=== PATIENT | female | born 2000 | race Caucasian/White ===

== ENCOUNTER → 2023-12-17 07:55 | Outpatient (BNVA) | payer SELFPAY | PROVIDERS: Family Provider Family Medicine; PCP Family Medicine; Visit Provider Nurse Practitioner Women's Health | DX: Z34.90 Encounter for supervision of normal pregnancy, unspecified, unspecified trimester | CPT/HCPCS: 80307; 81025; 85025; 86592; 86762; 86803; 86850; 86900; 87086; 87340; 87491; 87591; 87806 ==

== ENCOUNTER → 2023-12-31 11:48 | Outpatient (BNVA) | payer MEDICAID, SELFPAY | PROVIDERS: Family Provider Family Medicine; PCP Family Medicine; Visit Provider Obstetrics & Gynecology | DX: Z34.90 Encounter for supervision of normal pregnancy, unspecified, unspecified trimester (principal) | CPT/HCPCS: 81000; 87624 ==

== ENCOUNTER → 2024-01-07 13:22 | Outpatient (BNVA) | payer MEDICAID, SELFPAY | PROVIDERS: Family Provider Family Medicine; PCP Family Medicine; Visit Provider Nurse Practitioner Women's Health | DX: Z34.90 Encounter for supervision of normal pregnancy, unspecified, unspecified trimester (principal) | CPT/HCPCS: 76815 ==

== ENCOUNTER → 2024-01-28 10:58 | Outpatient (BNVA) | payer MEDICAID, SELFPAY | PROVIDERS: Family Provider Family Medicine; PCP Family Medicine; Visit Provider Obstetrics & Gynecology | DX: Z34.90 Encounter for supervision of normal pregnancy, unspecified, unspecified trimester (principal) | CPT/HCPCS: 81000 ==

== ENCOUNTER → 2024-02-25 08:59 | Outpatient (BNVA) | payer MEDICAID, SELFPAY | PROVIDERS: Family Provider Family Medicine; PCP Family Medicine; Visit Provider Obstetrics & Gynecology | DX: Z34.92 Encounter for supervision of normal pregnancy, unspecified, second trimester (principal); Z3A.15 15 weeks gestation of pregnancy | CPT/HCPCS: 81000 ==

== ENCOUNTER → 2024-03-06 14:19 | Outpatient (BNVA) | payer MEDICAID, SELFPAY | PROVIDERS: Family Provider Family Medicine; PCP Family Medicine; Visit Provider Obstetrics & Gynecology | DX: Z36.2 Encounter for other antenatal screening follow-up (principal); Z3A.23 23 weeks gestation of pregnancy | CPT/HCPCS: 76805 ==

== ENCOUNTER → 2024-03-20 08:06 | Outpatient (BNVA) | payer MEDICAID, SELFPAY | PROVIDERS: Family Provider Family Medicine; PCP Family Medicine; Visit Provider Nurse Practitioner Women's Health | DX: Z34.90 Encounter for supervision of normal pregnancy, unspecified, unspecified trimester (principal) | CPT/HCPCS: 81000 ==

== ENCOUNTER → 2024-04-14 10:20 | Outpatient (BNVA) | payer OTHER, MEDICAID, SELFPAY | PROVIDERS: Family Provider Family Medicine; PCP Family Medicine; Visit Provider Obstetrics & Gynecology | DX: Z34.90 Encounter for supervision of normal pregnancy, unspecified, unspecified trimester (principal) | CPT/HCPCS: 81000; 82950 ==

== ENCOUNTER → 2024-05-01 10:39 | Outpatient (BNVA) | payer OTHER, MEDICAID, SELFPAY | PROVIDERS: Family Provider Family Medicine; PCP Family Medicine; Visit Provider Obstetrics & Gynecology | DX: Z36.4 Encounter for antenatal screening for fetal growth retardation (principal); Z3A.31 31 weeks gestation of pregnancy | CPT/HCPCS: 76816 ==

== ENCOUNTER → 2024-06-09 11:16 | Outpatient (BNVA) | payer OTHER, MEDICAID, SELFPAY | PROVIDERS: Family Provider Family Medicine; PCP Family Medicine; Visit Provider Obstetrics & Gynecology | DX: O28.5 Abnormal chromosomal and genetic finding on antenatal screening of mother (principal); Z3A.15 15 weeks gestation of pregnancy | CPT/HCPCS: 84315; 87081 ==

== ENCOUNTER → 2024-07-07 10:24 | Outpatient (BNVA) | payer OTHER, MEDICAID, SELFPAY | PROVIDERS: Family Provider Family Medicine; PCP Family Medicine; Visit Provider Obstetrics & Gynecology | DX: Z34.93 Encounter for supervision of normal pregnancy, unspecified, third trimester (principal); Z3A.38 38 weeks gestation of pregnancy | CPT/HCPCS: 76816; 76819; 84315 ==

== ENCOUNTER 2024-07-11 13:14 | Inpatient (IN) | payer OTHER, MEDICAID, SELFPAY ==
[2024-07-11] VITALS (20 sets, daily range): BP systolic 110–173; BP diastolic 68–86; PULSE 70–96; RESP 16; TEMP 35.9–36.6; BMI 38.2
[2024-07-11 12:31] LABS: Basophils % 0.2 %; Eosinophils # 0.1 10^3/uL (0.0-0.8); Eosinophils % 0.4 %; Hematocrit 34.4 % (36-47); Lymphocytes # 2.2 10^3/uL (0.8-4.8); Lymphocytes % 17.7 %; Mean Corpuscular Hemoglobin 25.6 pg (27-33); Monocytes # 0.4 10^3/uL (0.2-0.9); Monocytes % 3.2 %; Neutrophils # 9.69 10^3/uL (1.8-7.7); Neutrophils % 78.1 %; Nucleated Red Blood Cells % 0 %; Platelet Count 267 10^3/cmm (157-399); Red Cell Distribution Width 14.3 % (12.1-15.1)
[2024-07-11] MEDS: miSOPROStol 100 mcg tablet 25 MCG VAGINAL (12:45)
[2024-07-12] VITALS (57 sets, daily range): BP systolic 110–143; BP diastolic 57–94; PULSE 75–113; RESP 16; TEMP 36.4–37; BMI 38.2
[2024-07-12] MEDS: dextrose 5%-sod chloride 0.45% 1,000 ML 125 ML IV ×2 (09:54→18:36)
[2024-07-12] MEDS: oxytocin 30 UNIT/500 ML BAG IV (09:54)
--- NOTE | 2024-07-12 12:05 | P.HP_ITS ---
Providers/Chief Complaint 2 Admitting Physician: Wilber Grace MD Primary TOWER EQUIPMENT INSTALLER: Wilber Grace MD Primary Care Provider: Scar Dowling Chief Complaint: ctx HPI TOWER EQUIPMENT INSTALLER History of Present Illness Patient was admitted on July 11, 2024, at 1245 23 y.o. G1 EDC July 03, 2024 by 14 week sono done on January 07, 2024 At 41 w 1 d No complications Admitted for induction of labor No c/o + movements Present Details : 1 Para: 0 Labs Rubella: Immune RPR: Negative GBS: Negative Medications/Allergies Home Medications Medication Instructions Recorded Confirmed Last Taken Type PNV 153-FA 400 mcg-om3 35 mg-dha 1 tab PO DAILY 12/17/23 07/11/24 Unknown History 25 mg-epa 5 mg-fish oil chew tablet ( Gummies) acetaminophen 325 mg capsule 325 mg PO QID PRN Pain 02/18/24 07/11/24 Unknown History Allergies Allergy/AdvReac Type Severity Reaction Status Date / Time No Known Allergies Allergy Verified 06/30/24 09:08 PFSH TOWER EQUIPMENT INSTALLER 2 PFSH: Family History Denies family history of Colon cancer Ovarian cancer Prostate cancer Diabetes Heart disease Hyperlipidemia Breast cancer Hypertension Uterine cancer Thyroid disease Stroke Social History Smoking and tobacco/nicotine status: never used tobacco/nicotine History History History 2 1 Term 0 Miscarriages/Ectopic Living Children Care COURTNEY Calculator 2 Estimated Delivery Date Method Current WG Current Estimate 07/03/24 Ultrasound #1 41w 4d Other Estimates 06/07/24 LMP (Uncertain) 45w 2d Specific Issues/Plans ABNORMAL CARRIER SCREENING -- CARRIER FOR SMA, planning for father of baby to be redrawn on 04/04 (spoke with [employer] and they will cover cost of redraw) Vitals/I&O/Wt Last Vital Signs Temp 97.8 F 07/13/24 21:19 Pulse 89 07/13/24 21:19 Resp 16 07/13/24 21:19 BP 114/78 07/13/24 21:19 Pulse Ox 97 07/13/24 21:19 O2 Del Method Room Air 07/13/24 21:19 Weight last 48 hrs Weight 223 lb Physical Exam 2 Narrative: Weight 223 lbs, 5?5? VS normal General comfortable, awake, alert Lungs: clear Cor: RRR Abd: nontender FH 38 cm, cephalic Cervix: 1 cm / 75 / -3 / posterior Ext: normal External monitor: heart tracing good variability, + accelerations Urinary Catheter Management: Reid Latex: Cath Placed During This Visit: yes, but has since been removed by the nurse Reason for Continuing Indwelling Catheter: Decision to DC Catheter Urinary Catheter Date of Insertion: 07/12/24 Urinary Catheter Time of Insertion: 15:50 Date Urinary Catheter Removed: 07/12/24 Time Urinary Catheter Discontinued: 19:40 Data 07/13/24 08:55 Results Labs OB ([facility]): 2 Obstetrics US 07/07/24 Blood Type A Positive 07/11/24 Antibody Screen Negative 07/11/24 Hct 31.4 % (36-47) L 07/13/24 Hgb 10.10 g/dL (11.27-16.99) L 07/13/24 Rho(D) Type Rh positive 07/11/24 Plt Count 223 10^3/cmm (157-399) 07/13/24 Hep Bs Antigen Non-reactive (Nonreactive) 12/17/23 Hepatitis C Antibody Non-reactive (Nonreactive) 12/17/23 Rubella IgG Antibody 199.8 IU/mL (0.0-10.0) H 12/17/23 RPR Nonreactive (Nonreactive) 12/17/23 HIV 1&2 Ab & HIV 1 Ag Non-reactive (Non-Reactiv) 12/17/23 C.trachomatis RNA (TMA) Not detected (NOT DETECTED) N.gonorrhoeae RNA (TMA) Not detected (NOT DETECTED) T. vaginalis Amp RNA Not detected (NOT DETECTED) 12/17/23 Chlamydia/GC Comment See note 12/17/23 Cystic Fibrosis Screen Risk- spinal atrophy 12/17/23 Glucose 1 Hr 50 gm 134 mg/dL (85-140) 04/14/24 HCG, Qual Positive (Negative) H 12/17/23 Urine Opiates Screen Negative ng/mL (Negative) 12/17/23 Ur Barbiturates Screen Negative ng/mL (Negative) 12/17/23 Ur Phencyclidine Scrn Negative ng/mL (Negative) 12/17/23 Ur Amphetamines Screen Negative ng/mL (Negative) 12/17/23 U Benzodiazepines Scrn Negative ng/mL (Negative) 12/17/23 Urine Cocaine Screen Negative ng/mL (Negative) 12/17/23 U Marijuana (THC) Screen Negative ng/mL (Negative) 12/17/23 Micro Urine Specimen 12/17/23 Pap Smear Interpret See note A 12/31/23 A&P Assessment and plan (1) Encounter for induction of labor: 41 w 1 d Fetus reassuring GBS negative Admit for labor induction Plan Cytotec 25 ug intravaginal x one Attestations 2 Medical Necessity Statement*: patient at 41 w 1 d, admitted for induction of labor Coding Level of Care Code Acute Code for Chg Fwd Diagnoses Encounter for induction of labor Z34.90 Time Spent (min) 60
[2024-07-12] MEDS: sodium chloride 0.9% 1,000 ML 999 ML IV (14:01)
[2024-07-12] MEDS: ROPivacaine syringe 100 MG/50 ML SYRINGE 10 MG EPIDURAL ×2 (15:13→18:49)
--- NOTE | 2024-07-12 15:16 | P.ANESASSM_ITS ---
Pre-Anesthetic Assessment Height/Weight: Height 1.63 m Weight 101.151 kg Temp Pulse Resp BP O2 Del Method 97.5 F L 77 16 124/71 Room Air 07/12/24 13:21 07/12/24 15:12 07/11/24 12:22 07/12/24 15:12 07/11/24 13:57 Preop Diagnosis: IUP Labor Epidural Familial anesthetic complications: None Was Beta Malachi taken within 24 hours: N/A Was Clonidine taken within 24 hours: N/A Last intake: 07/11/241999 MEAL CLEARS- CURRENT Social No alcohol and No tobacco vape prior to . Exam alert, oriented x 3 and clear to auscultation bilaterally Airway Submandibular: within normal limits Cervical ROM: within normal limits Mallampati: Class II Dentition: full History/ROS No significant history except as noted Pulmonary None reported CV/HEM None reported None reported Hepatic None reported GI Gastroesophageal Reflux Disease Metabolic Morbid Obesity [facility] [place] None reported Neuropsych None reported Anesthetic Plan ASA status: 2 Anesthesia: Regional (specify below) Other: Labor Epidural Medications/Allergies Home Medications Medication Instructions Recorded Confirmed Last Taken Type PNV 153-FA 400 mcg-om3 35 mg-dha 1 tab PO DAILY 12/17/23 07/11/24 Unknown History 25 mg-epa 5 mg-fish oil chew tablet ( Gummies) acetaminophen 325 mg capsule 325 mg PO QID PRN Pain 02/18/24 07/11/24 Unknown History Allergies Allergy/AdvReac Type Severity Reaction Status Date / Time No Known Allergies Allergy Verified 06/30/24 09:08 Current Medications Generic Name Dose Route Start Last Admin Trade Name Daryl PRN Reason Stop Dose Admin Dextrose/Sodium Chloride 1,000 mls @ 125 mls/hr 07/11/24 12:30 07/12/24 09:54 Dextrose 5%-Sod Chloride 0.45% IV 125 mls/hr .Q8H AMADA Administration Oxytocin 30 unit in 500 mls @ 1 mls/hr 07/12/24 09:30 07/12/24 09:54 Pitocin IV 1 milliunit/min .Q24H AMADA 1 mls/hr Administration Protocol 1 MILLIUNIT/MIN Sodium Chloride 1,000 mls @ 999 mls/hr 07/12/24 13:45 07/12/24 14:01 Sodium Chloride 0.9% IV 999 mls/hr .Q1H1M PRN Administration See label comments PFSH Anesthesia Family History Denies family history of Colon cancer Ovarian cancer Prostate cancer Diabetes Heart disease Hyperlipidemia Breast cancer Hypertension Uterine cancer Thyroid disease Stroke Social History Smoking and tobacco/nicotine status: never used tobacco/nicotine Female Reproductive History : 1 Data Anesthesia 07/11/24 12:20 Short CBC 07/11/24 Range/Units 12:20 WBC 12.40 H (3.29-11.43) 10^3/uL Hgb 11.00 L (11.27-16.99) g/dL Hct 34.4 L (36-47) % MCV 80.0 L (85-98) fl Plt Count 267 (157-399) 10^3/cmm Neut % (Auto) 78.1 % Neut # (Auto) 9.69 H (1.8-7.7) 10^3/uL Blood Bank 07/11/24 12:20 Blood Type A Positive Rho(D) Type Rh positive Antibody Screen Negative Cardiac Studies: 2 No Data to Display Anesthesia Procedures Epidural Time Out Performed: Yes Consents Signed: Procedure Consent Consent: from patient, risks and benefits reviewed and patient agrees to proceed Lumbar Level: L3-L4 Epidural position: sitting Epidural procedure: sterile prep of area, 1% lidocaine to numb the area, negative for paresthesia passed, test dose given, 1.5% xylocaine 1:200k epi, placed PCEA, no systemic response, sterile dressing applied, L.U.D. no apparent complications and 0.2% Ropiavacaine @ mls/hr (10) Additional Comments: WILLIAM @ 7 cm , first attempt, - heme -csf. catheter threaded to 12cm with ease. Adequate analgesia achieved.
--- NOTE | 2024-07-12 20:15 | PM.DELIVERY ---
Delivery Note: Date of delivery: July 12, 2024 Pre-delivery diagnoses: 41 w 1 d admitted for induction of labor Post-delivery diagnoses: 41 w 1 d admitted for induction of labor vaginal delivery repair of second-degree perineal laceration Procedure: induction of labor vaginal delivery repair of second-degree perineal laceration Op report anesthesia: Epidural Delivering Physician: Wilber Grace MD Estimated blood loss (mL): 300 Findings: , vigorous infant Cord gases obtained Normal placenta and cord Second-degree perineal laceration repaired EBL: 300 cc No complications Pre-Delivery Course: normal labor course Delivery: vaginal Post-Delivery Status: good History History History 1 Term 0 Miscarriages/Ectopic Living Children A&P Assessment and plan (1) Vaginal delivery: Coding Level of Care Code Acute Code for Chg Fwd Diagnoses Vaginal delivery O80 Time Spent (min) 120
[2024-07-12] MEDS: oxytocin 30 UNIT/500 ML BAG 600 UNIT IV (20:26)
[2024-07-12] MEDS: lanolin oint 7 gm 1 APPLIC TOPICAL (22:22)
[2024-07-12] MEDS: ibuprofen 800 mg tablet PO (22:22)
[2024-07-12] MEDS: benzocaine-menthol 78 gm Canister 1 SPRAY TOPICAL (22:23)
[2024-07-13 00:25] VITALS: BP 114/71; PULSE 94; RESP 18; TEMP 36.4; O2SAT 96
[2024-07-13 02:12] VITALS: BP 108/68; PULSE 92; RESP 17; TEMP 36.6; O2SAT 96
[2024-07-13 04:40] VITALS: BP 109/73; PULSE 78; RESP 16; TEMP 36.7; O2SAT 98
--- NOTE | 2024-07-13 08:00 | ANE.PACU2 ---
Inpatient post-anesthesia follow up: Airway intact: Yes Vital signs: Temperature 97.9 F Pulse Rate 82 Respiratory Rate 16 Blood Pressure 131/78 Pulse Oximetry 98 Oxygen Delivery Me thod Room Air Oxygen Flow Rate Fraction of Inspir ed Oxygen Hydration adequate: Yes Nausea and vomiting: No Pain level: 1 Mental status: Baseline Epidural Start/End: Epidural Start Date: 07/12/24 Epidural Start Time: 14:40 Epidural End Date: 07/12/24 Epidural End Time: 20:42
[2024-07-13] MEDS: ibuprofen 800 mg tablet PO ×3 (08:44→21:19)
[2024-07-13] MEDS: PRENATAL VIT NO.130/IRON/FOLIC 1 EACH TABLET PO (08:44)
[2024-07-13] MEDS: docusate sodium 100 mg Capsule PO ×2 (08:44→18:11)
[2024-07-13 09:07] LABS: Hematocrit 31.4 % (36-47); Mean Corpuscular HGB Conc 32.2 g/dL (30-55); Mean Corpuscular Hemoglobin 25.7 pg (27-33); Mean Corpuscular Volume 79.9 fl (85-98); Mean Platelet Volume 9.9 fL (7.4-10.4); Platelet Count 223 10^3/cmm (157-399); Red Blood Count 3.93 10^6/uL (3.85-5.65); Red Cell Distribution Width 14.6 % (12.1-15.1)
[2024-07-13 09:59] VITALS: BP 112/71; PULSE 86; RESP 17; TEMP 36.7; O2SAT 98
--- NOTE | 2024-07-13 14:15 | PM.OBGYPN ---
SCRAP METAL COLLECTOR Subjective Subjective: Interval history: no c/o no headaches, dizziness, nausea, abdominal pain, bleeding normal lochia mild perineal pain, relieved with pain meds eating, voiding, ambulating well Labor: Station: +2 Amniotic Membrane Status: Ruptured Monitor Mode: External Contraction Pattern: Regular Status: Category II Vitals/I&O/Wt Last Vital Signs Temp 97.8 F 07/13/24 21:19 Pulse 89 07/13/24 21:19 Resp 16 07/13/24 21:19 BP 114/78 07/13/24 21:19 Pulse Ox 97 07/13/24 21:19 O2 Del Method Room Air 07/13/24 21:19 Weight last 48 hrs Weight 223 lb Physical Exam Narrative: afebrile, VS normal comfortable, awake, alert Abd: soft, nontender. fundus firm Ext: no edema; nontender Urinary Catheter Management: Reid Latex: Cath Placed During This Visit: yes, but has since been removed by the nurse Reason for Continuing Indwelling Catheter: Decision to DC Catheter Urinary Catheter Date of Insertion: 07/12/24 Urinary Catheter Time of Insertion: 15:50 Date Urinary Catheter Removed: 07/12/24 Time Urinary Catheter Discontinued: 19:40 Data 07/13/24 08:55 A&P Assessment and plan (1) Vaginal delivery: PPD #1 , repair of second-degree perineal laceration doing well normal course continue care Attestations Medical Necessity Statement*: patient s/p vaginal delivery, for care Coding Level of Care Code Acute Code for Chg Fwd Diagnoses Vaginal delivery O80 Time Spent (min) 30
[2024-07-13 17:00] VITALS: BP 110/62; PULSE 79; RESP 16; TEMP 36.7; O2SAT 97
[2024-07-13 21:19] VITALS: BP 114/78; PULSE 89; RESP 16; TEMP 36.6; O2SAT 97
[2024-07-14 06:04] VITALS: BP 100/66; PULSE 76; RESP 16; TEMP 36.4; O2SAT 98
[2024-07-14] MEDS: docusate sodium 100 mg Capsule PO (09:41)
[2024-07-14] MEDS: PRENATAL VIT NO.130/IRON/FOLIC 1 EACH TABLET PO (09:41)
[2024-07-14] MEDS: ibuprofen 800 mg tablet PO (09:41)
[2024-07-14 09:58] VITALS: BP 133/87; PULSE 76; RESP 18; TEMP 36.6; O2SAT 98
--- NOTE | 2024-07-14 12:35 | P.PN_ITS ---
SUSTAINABLE DESIGN COORDINATOR Subjective 2 Subjective: Interval history: no c/o no bleeding, pain eating, voiding, ambulating well caring for without any problems Labor: Station: +2 Amniotic Membrane Status: Ruptured Monitor Mode: External Contraction Pattern: Regular Status: Category II Vitals/I&O/Wt Last Vital Signs Temp 97.9 F 07/14/24 14:20 Pulse 82 07/14/24 14:20 Resp 16 07/14/24 14:20 BP 131/78 07/14/24 14:20 Pulse Ox 98 07/14/24 14:20 O2 Del Method Room Air 07/14/24 09:58 Physical Exam 2 Narrative: afebrile, VS normal comfortable, awake, alert Abd: soft, nontender. fundus firm Ext: no edema; nontender Urinary Catheter Management: Reid Latex: Cath Placed During This Visit: yes, but has since been removed by the nurse Reason for Continuing Indwelling Catheter: Decision to DC Catheter Urinary Catheter Date of Insertion: 07/12/24 Urinary Catheter Time of Insertion: 15:50 Date Urinary Catheter Removed: 07/12/24 Time Urinary Catheter Discontinued: 19:40 Data 07/13/24 08:55 A&P Assessment and plan (1) Vaginal delivery: PPD #2 , repair of second-degree perineal laceration doing well discharge to home today instructions and precautions given call/return if fever, chills, headache, blurry vision, nausea, vomiting, abdominal pain; vaginal bleeding or discharge; shortness of breath, chest pain, leg pains or swelling; inability to void, perineal pain or swelling; feelings of depression or mood changes; thoughts of suicide or harming others; inability to care for baby. f/u in 6 weeks or PRN Attestations 2 Medical Necessity Statement*: patient s/p vaginal delivery, plan to discharge to home today Coding Level of Care Code Acute Code for Chg Fwd Diagnoses Vaginal delivery O80 Time Spent (min) 20
--- NOTE | 2024-07-14 12:40 | P.DS_ITS ---
Discharge Providers VACUUM DRUM DRIER OPERATOR Date of Admission: 07/12/24 12:00 Date of Discharge: 07/14/24 Attending Provider at Admission: Wilber Grace MD Attending Provider at Discharge: Wilber Grace MD Consults: none Primary VACUUM DRUM DRIER OPERATOR: Wilber Grace MD Primary Care Provider: Scar Dowling Diagnoses at Discharge Discharge Diagnosis (1) Vaginal delivery: Details from hospital stay: 23 y.o. G1 admitted at 41 w 1 d for induction of labor patient was given one dose of cytotec 25 ug intravaginally then started on pitocin per protocol patient proceeded to have vaginal delivery without any complications and repair of second-degree perineal laceration patient did well and was discharged to home on the second day Status: Acute Reason for Visit Reason for Visit: ctx Brief History: 23 y.o. G1 admitted at 41 w 1 d for induction of labor Hospital Course Hospital Course 23 y.o. G1 admitted at 41 w 1 d for induction of labor patient was given one dose of cytotec 25 ug intravaginally then started on pitocin per protocol patient proceeded to have vaginal delivery without any complications and repair of second-degree perineal laceration patient did well and was discharged to home on the second day Information Peripartum Data: Infant Delivery Method: Vaginal Laceration description: Perineal - 2nd Degree Episiotomy description: None complications: none Physical Exam Narrative: afebrile, VS normal comfortable, awake, alert Abd: soft, nontender. fundus firm Ext: no edema; nontender Urinary Catheter Management: Reid Latex: Cath Placed During This Visit: yes, but has since been removed by the nurse Reason for Continuing Indwelling Catheter: Decision to DC Catheter Urinary Catheter Date of Insertion: 07/12/24 Urinary Catheter Time of Insertion: 15:50 Date Urinary Catheter Removed: 07/12/24 Time Urinary Catheter Discontinued: 19:40 History History History 1 Term 0 Miscarriages/Ectopic Living Children Discharge Data Studies Completed and Pending Laboratory Results WBC 15.00 10^3/uL (3.29-11.43) H 07/13/24 08:55 RBC 3.93 10^6/uL (3.85-5.65) 07/13/24 08:55 Hgb 10.10 g/dL (11.27-16.99) L 07/13/24 08:55 Hct 31.4 % (36-47) L 07/13/24 08:55 MCV 79.9 fl (85-98) L 07/13/24 08:55 MCH 25.7 pg (27-33) L 07/13/24 08:55 MCHC 32.2 g/dL (30-55) 07/13/24 08:55 RDW 14.6 % (12.1-15.1) 07/13/24 08:55 Plt Count 223 10^3/cmm (157-399) 07/13/24 08:55 MPV 9.9 fL (7.4-10.4) 07/13/24 08:55 Neut % (Auto) 78.1 % 07/11/24 12:20 Lymph % (Auto) 17.7 % 07/11/24 12:20 Pierce % (Auto) 3.2 % 07/11/24 12:20 Eos % (Auto) 0.4 % 07/11/24 12:20 Baso % (Auto) 0.2 % 07/11/24 12:20 Neut # (Auto) 9.69 10^3/uL (1.8-7.7) H 07/11/24 12:20 Lymph # (Auto) 2.2 10^3/uL (0.8-4.8) 07/11/24 12:20 Pierce # (Auto) 0.4 10^3/uL (0.2-0.9) 07/11/24 12:20 Eos # (Auto) 0.1 10^3/uL (0.0-0.8) 07/11/24 12:20 Baso # (Auto) 0.0 10^3/uL (0.0-0.1) 07/11/24 12:20 Nucleated RBC % (auto) 0 % 07/11/24 12:20 Nucleated RBCs # 0.0 /100WBC 07/11/24 12:20 Blood Type A Positive 07/11/24 12:20 Rho(D) Type Rh positive 07/11/24 12:20 Antibody Screen Negative 07/11/24 12:20 Procedures Performed induction of labor vaginal delivery repair of second-degree perineal laceration Vitals Last Vital Signs Temp 97.9 F 07/14/24 14:20 Pulse 82 07/14/24 14:20 Resp 16 07/14/24 14:20 BP 131/78 07/14/24 14:20 Pulse Ox 98 07/14/24 14:20 O2 Del Method Room Air 07/14/24 09:58 Results Labs OB ([facility]): Obstetrics US 07/07/24 Blood Type A Positive 07/11/24 Antibody Screen Negative 07/11/24 Hct 31.4 % (36-47) L 07/13/24 Hgb 10.10 g/dL (11.27-16.99) L 07/13/24 Rho(D) Type Rh positive 07/11/24 Plt Count 223 10^3/cmm (157-399) 07/13/24 Hep Bs Antigen Non-reactive (Nonreactive) 12/17/23 Hepatitis C Antibody Non-reactive (Nonreactive) 12/17/23 Rubella IgG Antibody 199.8 IU/mL (0.0-10.0) H 12/17/23 RPR Nonreactive (Nonreactive) 12/17/23 HIV 1&2 Ab & HIV 1 Ag Non-reactive (Non-Reactiv) 12/17/23 C.trachomatis RNA (TMA) Not detected (NOT DETECTED) N.gonorrhoeae RNA (TMA) Not detected (NOT DETECTED) T. vaginalis Amp RNA Not detected (NOT DETECTED) 12/17/23 Chlamydia/GC Comment See note 12/17/23 Cystic Fibrosis Screen Risk- spinal atrophy 12/17/23 Glucose 1 Hr 50 gm 134 mg/dL (85-140) 04/14/24 HCG, Qual Positive (Negative) H 12/17/23 Urine Opiates Screen Negative ng/mL (Negative) 12/17/23 Ur Barbiturates Screen Negative ng/mL (Negative) 12/17/23 Ur Phencyclidine Scrn Negative ng/mL (Negative) 12/17/23 Ur Amphetamines Screen Negative ng/mL (Negative) 12/17/23 U Benzodiazepines Scrn Negative ng/mL (Negative) 12/17/23 Urine Cocaine Screen Negative ng/mL (Negative) 12/17/23 U Marijuana (THC) Screen Negative ng/mL (Negative) 12/17/23 Micro Urine Specimen 12/17/23 Pap Smear Interpret See note A 12/31/23 Discharge Plan Discharge Patient Disposition: Home Condition: Stable Prescriptions: Continued acetaminophen 325 mg capsule 325 mg PO QID PRN (Reason: Pain) Gummies 400 mcg-35 mg- 25 mg-5 mg tablet,chewable 1 tab PO DAILY Discharge Orders: Discharge Order (Routine); Ordered 07/14/24 Ordered By: Wilber Grace Referrals: Elissa Shell SUPPORT CLERK [Nurse Practitioner] - 09/15/24 1:45 pm Discharge Diet: Usual diet Discharge Activity: Increase activity as tolerated Patient Instructions: Depression (DC), Opioid Safety (DC), Preeclampsia and Eclampsia After Delivery (GEN), Hemorrhage (DC), OB Discharge Report, OB Food/Drug Interaction Guide, Opioid Safety, OB Home Care, OB Vaginal Deliveries - [facility], Abnormal Bleeding Discharge Attestations VACUUM DRUM DRIER OPERATOR Time Spent in Discharge Care*: less than 30 min Coding Level of Care Code Acute Code for Chg Fwd Diagnoses Vaginal delivery O80 Time Spent (min) 20
--- NOTE | 2024-07-14 12:40 | PM.DELIVERY ---
Delivery Note: Date of delivery: July 14, 2024 Pre-delivery diagnoses: 23 y.o. G1 at 41 w 1 d admitted for induction of labor Post-delivery diagnoses: 23 y.o. G1 at 41 w 1 d admitted for induction of labor vaginal delivery repair of second-degree perineal laceration Procedure: induction of labor vaginal delivery repair of second-degree perineal laceration Op report anesthesia: Epidural Estimated blood loss (mL): 300 History History History 1 Term 0 Miscarriages/Ectopic Living Children Coding Level of Care Code Acute Code for Chg Fwd
[2024-07-14 14:20] VITALS: BP 131/78; PULSE 82; RESP 16; TEMP 36.6; O2SAT 98
== END 2024-07-14 14:20 | disposition home or self-care (01) | DRG 807 ==
LOC: OPOB 13:15 → OBGYN 15:35
PROVIDERS: Admitting Provider Obstetrics & Gynecology; Family Provider Family Medicine; PCP Family Medicine; Visit Provider Obstetrics & Gynecology
DX: O70.1 Second degree perineal laceration during delivery (principal); Z37.0 Single live birth; Z3A.41 41 weeks gestation of pregnancy; O48.0 Post-term pregnancy
CPT/HCPCS: 36415; 51702; 59025; 59409; 85025; 85027; 86850; 86900; 99211; G0378; J2590; J2795; J7030; J7799